=== PATIENT | male | born 1960 | race Caucasian/White ===

== ENCOUNTER → 2016-06-28 | Outpatient (CLI) | payer BC | LOC: FIMAGING 15:40 | PROVIDERS: ATTEND Psychiatry & Neurology Neurology | DX: M50.11 Cervical disc disorder with radiculopathy, high cervical region (principal); M50.120 Mid-cervical disc disorder, unspecified level ==

== ENCOUNTER → 2016-11-27 | Outpatient (CLI) | payer BC | LOC: FIMAGING 16:10 | PROVIDERS: ATTEND Surgery | DX: N50.82 Scrotal pain (principal); N45.1 Epididymitis ==